=== PATIENT | male | born 1935 | race Caucasian/White ===

== ENCOUNTER 2018-12-13 08:45 | Day surgery (SDC) | payer OTHER, BC ==
[2018-12-06 15:55] VITALS: BMI 24.4
[2018-12-13] MEDS ORDERED: LIDOCAINE 1%/EPI 1:100000 (20 ML MULTI DOSE VIAL) ONE (09:52)
[2018-12-13] MEDS ORDERED: GUM MASTIC/STORAX/MSAL/ALCOHOL 1 DRP DROPSBTL MC ONE (09:53)
[2018-12-13] MEDS ORDERED: THROMBIN (RECOMBINANT) 5,000 UNIT VIAL TP ONE (10:04)
[2018-12-13] MEDS ORDERED: PROPOFOL 20 ML ONE ×4 (10:19→10:20)
[2018-12-13] MEDS ORDERED: DEXAMETHASONE SOD PHOSPHATE/PF 10 MG/ML SDV ONE (10:32)
[2018-12-13] MEDS ORDERED: MIDAZOLAM HCL 2 MG/2 ML SINGLE DOSE VIAL ONE (10:32)
[2018-12-13] MEDS ORDERED: BUPIVACAINE HCL/PF 0.5% (5 MG/ML) 30 ML VIAL IJ ONE (10:33)
[2018-12-13] MEDS ORDERED: ONDANSETRON 4 MG/2 ML VIAL ONE (11:23)
[2018-12-13] MEDS ORDERED: DEXAMETHASONE SOD PHOSPHATE 4 MG/1 ML VIAL ONE (11:23)
[2018-12-13] MEDS ORDERED: ceFAZolin SODIUM 1 GM VIAL ONE (11:23)
[2018-12-13] MEDS ORDERED: THROMBIN (BOVINE) 5,000 UNIT VIAL TP ONE ×2 (11:37→11:48)
[2018-12-13] MEDS ORDERED: ePHEDrine SULFATE 50 MG/1 ML AMPULE ONE (12:16)
--- NOTE | 2018-12-13 13:09 | OP ---
Operative Note - Note: Operative Date: 12/13/18 Pre-Operative Diagnosis: lumbar stenosis Operation: laminectomy of L2-3 with durotomy repair-durgen patch and duraseal Surgeon: Pratik Cervantes Wholesaler: Sharonda Espana Anesthesiologist/MUSIC EDUCATION ADJUNCT PROFESSOR: Oneil Etienne Anesthesia: Spinal Estimated Blood Loss (mls): 30 Fluid Volume Replaced (mls): 1,000 Operative Report Dictated: Yes
--- NOTE | 2018-12-13 13:10 | SURG ---
Surgery Aerospace Assembler Note Aerospace Assembler: Sharonda Espana PA-C Date of Service: 12/13/18 Diagnosis: lumbar stenosis Procedure: laminectomy of L2-3 with durotomy repair-durogen patch and duraseal I was present for the entirety of the operative procedure. For further detail, please refer to operative report. Visit type - Case Type Case Type: Scheduled - Emergency Emergency Visit: No - New patient This patient is new to me today: Yes Date on this admission: 12/13/18
[2018-12-13] MEDS ORDERED: ONDANSETRON 4 MG/2 ML VIAL IVPUSH PRN (14:13)
[2018-12-13] MEDS ORDERED: LACTATED RINGERS SOLUTION 1,000 ML IV SCH (14:15)
--- NOTE | 2018-12-13 14:23 | OP ---
DATE OF OPERATION: 12/13/2018 PREOPERATIVE DIAGNOSIS: Spinal stenosis, L2-3. POSTOPERATIVE DIAGNOSIS: Spinal stenosis, L2-3. PROCEDURE PERFORMED: Laminectomy, L2-3. SURGEON: Pratik Cervantes MD STEEL BUFFER: DEBBY Mackay ESTIMATED BLOOD LOSS: 50 mL. IV FLUIDS: Per Anesthesia. ANESTHESIA: Spinal/TLIP. COMPLICATIONS: There were none. DISPOSITION: Patient brought to the PACU in stable condition. INDICATION FOR SURGERY: The patient is an 83-year-old gentleman who has been suffering from pain from his back down his leg. X-rays and MRI were completed, which noted that he has spinal stenosis at L2-3. He had gone through an exhaustive course of treatment for this, which included medications, physical therapy as well as injections. Unfortunately, his pain continued to persist despite all this. At this point, risks, benefits, and alternatives were discussed and the patient consented to surgery. OPERATIVE NOTE: Patient was brought to the operating room by the anesthesia staff. After appropriate patient identification was performed, spinal anesthesia was given. A TLIP block was also given. The patient was able to position himself prone onto the OR table with all areas of bony prominences well padded. At this time, 2 needles were placed in his back to warren off the L2-3 level. X-ray was taken to confirm this was correct. The needle was removed and lidocaine 10 mL with epinephrine was injected in his back. At this time his back was prepped and draped in a sterile manner. At this point, timeout was completed. An incision was made from the top of L2 down to the bottom of L3. Dissection was carried down to the fascia. Fascia was opened at this time. An appropriate retractor was then placed in. A spinal needle was placed onto the L2 lamina to warren off the L2-3 level. X-rays taken to confirm this was correct. The needle was removed and the interspinous ligament at L2-3 was removed. Portions of the L2-L3 spinous processes were removed. Portions of L2-3 lamina were removed. Flavum was identified, it was removed. A complete decompression was performed, such that by the end of the procedure, the L3 nerve root appeared to be well decompressed. All bleeding was well controlled at this time. Steroid was placed over the nerve root, FloSeal was placed over that. The fascia was closed with a number 1 Vicryl suture. Subcutaneous tissue was closed with 2-0 Vicryl suture. Skin was closed with 3-0 Monocryl suture. Dermabond was applied, Steri-Strips were applied, sterile dressing applied. Patient was placed supine on OR bed, brought to the PACU in stable condition. Myke BURDICK/[id number]
[2018-12-13 14:36] VITALS: TEMP 97.8
[2018-12-13 16:24] VITALS: BP 155/79; PULSE 56
== END 2018-12-13 16:10 | disposition home or self-care (01) ==
LOC: FASU 08:45
PROVIDERS: ATTEND Orthopaedic Surgery Orthopaedic Surgery of the Spine
PROC: 01NB0ZZ Release Lumbar Nerve, Open Approach (ICD-10-PCS; principal; 2018-12-13 11:44)
DX: M48.061 Spinal stenosis, lumbar region without neurogenic claudication (principal)
CPT/HCPCS: 72100-TC-FY; 94760

== ENCOUNTER 2019-11-16 06:04 | Inpatient (IN) | payer OTHER, BC ==
[2019-11-16] MEDS ORDERED: LOCK ITEM NR ONE (06:34)
[2019-11-16 06:50] VITALS: BMI 24.0
[2019-11-16] MEDS ORDERED: MIDAZOLAM HCL 2 MG/2 ML SINGLE DOSE VIAL ONE ×4 (07:05→10:24)
[2019-11-16] MEDS ORDERED: ROPIVACAINE HCL 0.5% 30ML VIAL ONE (07:05)
[2019-11-16] MEDS ORDERED: SUCCINYLCHOLINE CHLORIDE 200 MG/10 ML SYRINGE ONE (07:20)
[2019-11-16] MEDS ORDERED: PROPOFOL 20 ML ONE (07:20)
[2019-11-16] MEDS ORDERED: BENZOIN/ALOE VERA/STORAX/TOLU 58 ML BOTTLE ONE (07:29)
--- NOTE | 2019-11-16 07:57 | PN ---
Progress Note (short form) - Note Progress Note: 84M s/p RIGHT total hip replacement POD #0. -Pain control: per anaesthesia team. -DVT PPx: -Chemical: ASA 81mg PO BID x 6 weeks. -Mechanical: MALCOLM's, SCD's. -Incentive spirometry q15 min. -PT/OT/Rehab, OOB. -WBAT RLE. -Post-op Ancef x 3 doses. -f/u post-op TOV: 8 hours max. -f/u AM labs. -Diet as tolerated. -Care per medical hospitalist team. -Discharge planning: f/u [facility] [place] Office 10-14 days; call for appointment . -Will follow. Camron Rapp MD (Orthopaedic Surgery).
--- NOTE | 2019-11-16 07:59 | OP ---
Operative Note - Note: Operative Date: 11/16/19 Pre-Operative Diagnosis: Right hip DJD Operation: Right COLLIN Implants: Burkett. Cup - Trident II-Tritanium, 58mm. Poly - 32mm, neutral. Stem - Accolade II, 127 deg NSA (high offset), #7. Head - 32mm diameter, std length Biolox/Delta Ceramic Post-Operative Diagnosis: Same as Pre-op Surgeon: Camron Rapp Family Life Counselor: Jim Rapp Anesthesiologist/CHEF TEACHER: Cullen Garland Anesthesia: Spinal Specimens Removed: Left femoral head Estimated Blood Loss (mls): 250 Fluid Volume Replaced (mls): 1,000 (Crystalloid) Operative Report Dictated: Yes
[2019-11-16] MEDS ORDERED: TRANEXAMIC ACID 1000 MG/10 ML VIAL IVPUSH ONE (08:00)
[2019-11-16] MEDS ORDERED: CEFAZOLIN 2 GM in DEXTROSE 5%-WATER - 50 ML IVPB ONE (08:00)
[2019-11-16] MEDS ORDERED: VANCOMYCIN 1 GM in D5W (PRE-DOCKED) 1,000 MG/250 ML IVPB ONE (08:01)
[2019-11-16] MEDS ORDERED: EPHEDRINE SULFATE/0.9% NACL/PF 50 MG/10 ML SYRINGE NR ONE (08:35)
[2019-11-16] MEDS ORDERED: ARTIFICIAL TEARS (POLYVINYL ALCOHOL) OPTH DROPS OU SCH (10:00)
[2019-11-16] MEDS ORDERED: CHOLECALCIFEROL (VIT D3) 1,000 UNIT (25 MCG) TABLET PO SCH (10:00)
[2019-11-16] MEDS ORDERED: PATIENT'S OWN MEDICATION (NON-FORMULARY) (B12/Levomefolate Calcium/B-6 [Foltx Tablet] 1 EA PO SCH (10:00)
[2019-11-16] MEDS ORDERED: HYDROCHLOROTHIAZIDE 12.5 MG CAPSULE (FP) PO SCH (10:00)
[2019-11-16] MEDS ORDERED: PATIENT'S OWN MEDICATION (NON-FORMULARY) (Ubidecarenone/Vit E Acet [Co Q-10 100 Mg Softgel PO SCH (10:00)
[2019-11-16] MEDS ORDERED: DEXAMETHASONE SOD PHOSPHATE 4 MG/1 ML VIAL ONE (10:12)
[2019-11-16] MEDS ORDERED: TRANEXAMIC ACID 1000 MG/10 ML VIAL ONE (10:12)
[2019-11-16] MEDS ORDERED: ceFAZolin SODIUM 1 GM VIAL ONE ×2 (10:12→10:27)
[2019-11-16] MEDS ORDERED: ONDANSETRON 4 MG/2 ML VIAL ONE (10:12)
[2019-11-16] MEDS ORDERED: MAGNESIUM HYDROX 2400MG/30ML ORAL SUSPENSION 30 ML CUP PO PRN (11:33)
[2019-11-16] MEDS ORDERED: ONDANSETRON 4 MG/2 ML VIAL IVPUSH PRN ×2 (11:33→11:40)
[2019-11-16] MEDS ORDERED: MAG HYDROX/AL HYDROX/SIMETH 30 ML UNIT-DOSE CUP PO PRN (11:33)
[2019-11-16] MEDS ORDERED: oxyCODONE HCL 5 MG TABLET PO PRN (11:40)
[2019-11-16] MEDS ORDERED: PROMETHAZINE HCL 25 MG/1 ML VIAL IVPUSH PRN (11:40)
[2019-11-16] MEDS ORDERED: LACTATED RINGERS SOLUTION 1,000 ML IV SCH (11:45)
--- NOTE | 2019-11-16 13:33 | HP ---
CHIEF COMPLAINT: Right hip pain PCP: Ortho: Dr. Camron Rapp HISTORY OF PRESENT ILLNESS: 84 year-old male with a PMH significant for hypertension, BPH, and right hip degenerative joint disease s/p right total hip arthoplasty today with Dr. Camron Rapp. 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[employer]; 2x; 2 children; 3 grandchildren Smoking: never Alcohol: no Drugs: no Family history: father 45 liver cancer; other CVA 68 Allergies soy Allergy (Severe, Verified 11/10/19 08:53) Difficulty Breathing,swelling tree and shrub pollen Allergy (Intermediate, Verified 11/10/19 08:53) Itching,runny nose No Known Drug Allergies Allergy (Verified 11/10/19 08:53) HOME MEDICATIONS: Current Medications Generic Name Dose Route Start Last Admin Trade Name Freq PRN Reason Stop Dose Admin Al Hydroxide/Mg Hydroxide 30 ml 11/16/19 11:33 Mylanta Oral Suspension - PO Q4H PRN DYSPEPSIA Ascorbic Acid 1,000 mg 11/16/19 10:00 11/16/19 16:21 Vitamin C - PO Not Given DAILY LOS Aspirin 81 mg 11/16/19 22:00 Asa - PO BID LOS Fentanyl 50 mcg 11/16/19 11:40 Sublimaze Injection - IVPUSH [id number] PRN PAIN-PACU ORDER X 4 DOSES ONLY Cefazolin Sodium/Dextrose 2 gm in 50 mls @ 100 mls/hr 11/16/19 17:00 11/16/19 17:22 Ancef 2 Gm Premixed Ivpb - IVPB 11/17/19 05:29 100 mls/hr Q6H LOS Administration Lactated Ringer's 1,000 mls @ 125 mls/hr 11/16/19 11:45 11/16/19 16:24 Lactated Ringers Solution IV 11/17/19 06:00 Not Given ASDIR LOS Magnesium Hydroxide 30 ml 11/16/19 11:33 Milk Of Magnesia - PO PRN PRN CONSTIPATION Multivitamins/Minerals 1 each 11/16/19 10:00 11/16/19 16:21 Theragran-M PO Not Given DAILY LOS Ondansetron HCl 4 mg 11/16/19 11:33 Zofran Injection IVPUSH Q6H PRN NAUSEA Ondansetron HCl 4 mg 11/16/19 11:40 Zofran Injection IVPUSH Q6H PRN NAUSEA AND/OR VOMITING Oxycodone HCl 10 mg 11/16/19 11:40 11/16/19 16:58 Roxicodone - PO 10 mg Q4H PRN Administration PAIN LEVEL 6-10 Oxycodone HCl 5 mg 11/16/19 11:40 Roxicodone - PO Q4H PRN PAIN LEVEL 1-5 Pantoprazole Sodium 40 mg 11/17/19 10:00 Protonix - PO DAILY [facility] Promethazine HCl 12.5 mg 11/16/19 11:40 Phenergan Injection - IVPUSH Q6H PRN NAUSEA-FOR RESCUE AFTER 15 MIN Senna/Docusate Sodium 2 tablet 11/16/19 22:00 Pericolace - PO BID [facility] REVIEW OF SYSTEMS CONSTITUTIONAL: Absent: fever, chills, diaphoresis, generalized weakness, malaise, loss of appetite, weight change HEENT: Absent: rhinorrhea, nasal congestion, throat pain, throat swelling, difficulty swallowing, mouth swelling, ear pain, eye pain, visual changes CARDIOVASCULAR: Absent: chest pain, syncope, palpitations, irregular heart rate, lightheadedness, peripheral edema RESPIRATORY: Absent: cough, shortness of breath, dyspnea with exertion, orthopnea, wheezing, stridor, hemoptysis GASTROINTESTINAL: Absent: abdominal pain, abdominal distension, nausea, vomiting, diarrhea, constipation, melena, hematochezia GENITOURINARY: Absent: dysuria, frequency, urgency, hesitancy, hematuria, flank pain, genital pain MUSCULOSKELETAL: Absent: myalgia, arthralgia, joint swelling, back pain, neck pain SKIN: Absent: rash, itching, pallor HEMATOLOGIC/IMMUNOLOGIC: Absent: easy bleeding, easy bruising, lymphadenopathy, frequent infections ENDOCRINE: Absent: unexplained weight gain, unexplained weight loss, heat intolerance, cold intolerance NEUROLOGIC: Absent: headache, focal weakness or paresthesias, dizziness, unsteady gait, seizure, mental status changes, bladder or bowel incontinence PSYCHIATRIC: Absent: anxiety, depression, suicidal or homicidal ideation, hallucinations. PHYSICAL EXAMINATION Vital Signs - 24 hr 11/16/19 11/16/1920 06:45 11:23 11:25 Temperature 98 F 97 F L Pulse Rate 63 61 60 Respiratory 15 18 18 Rate Blood Pressure 144/78 112/61 106/51 L O2 Sat by Pulse 95 95 Oximetry (%) 11/16/19 11/16/19 11/16/19 11:30 11:35 11:50 Temperature 97 F L Pulse Rate 55 L 57 L 57 L Respiratory 18 18 18 Rate Blood Pressure 105/54 L 102/52 L 102/52 L O2 Sat by Pulse 95 95 95 Oximetry (%) 11/16/19 11/16/19 11/16/19 12:10 12:25 12:40 Temperature Pulse Rate 57 L 51 L 54 L Respiratory 18 18 18 Rate Blood Pressure 110/56 L 121/55 L 116/54 L O2 Sat by Pulse 95 95 95 Oximetry (%) 11/16/19 12:50 Temperature Pulse Rate 54 L Respiratory 18 Rate Blood Pressure 116/54 L O2 Sat by Pulse 95 Oximetry (%) GENERAL: Awake, alert, and fully oriented, in no acute distress. HEAD: Normal with no signs of trauma. EYES: Pupils equal, round and reactive to light, extraocular movements intact, sclera anicteric, conjunctiva clear. No lid lag. LUNGS: Breath sounds equal, clear to auscultation bilaterally. No wheezes, and no crackles. No accessory muscle use. HEART: Regular rate and rhythm, normal S1 and S2 ABDOMEN: Soft, nontender, not distended UPPER EXTREMITIES: 2+ pulses, warm, well-perfused. No cyanosis. No clubbing. No peripheral edema. RLE: surgical dressing c/d/i, ice pack, no surrounding erythema, swelling, or fluctuance; 2+DP pulses, warm, well-perfused; +flex/extend toes, sensory intact; SLR to 45 degrees with minimal discomfort NEUROLOGICAL: Cranial nerves II-XII intact. Normal speech. Pre op Hgb 14.6 BUN 37 Cr 1.0 Intra op EBL 250ccs LR 1,000ccs Vanc x 1, Ancef x 1 ASSESSMENT/PLAN: 84 year-old male with a PMH significant for HTN, BPH, essential tremors, DJD s/p right COLLIN. Right total hip arthroplasty --POD #0 --perioperative antibiotics per surgery --pain management per surgery --ASA 81mg BID --protonix --bowel regimen --incentive spirometry COVID negative --11/12/19 swab Hypertension --borderline low BP, hold HCTZ Essential tremors --mildy bradycardic, hold propranolol FEN Fluids: LR@125mL/hr Electrolytes: replete as indicated Nutrition: regular diet DVT prophylaxis: OOB, ambulation, SCDs, TEDs, ASA 81mg BID Physical therapy Dispo: continues to require inpatient care. Full code. Visit type - Emergency Visit Emergency Visit: No - New Patient This patient is new to me today: Yes Date on this admission: 11/16/19 - Critical Care Critical Care patient: No
[2019-11-16] MEDS: ASCORBIC ACID 500 MG TABLET (FP) PO SCH (16:21)
[2019-11-16] MEDS: MULTIVITAMINS THER W-MINERALS COMBO TABLET (FP) PO SCH (16:21)
[2019-11-16] MEDS: oxyCODONE HCL 5 MG TABLET PO PRN ×2 (16:58→20:00)
[2019-11-16] MEDS: CEFAZOLIN 2 GM/D5W 2 GM/50 ML ML IVPB SCH ×2 (17:22→23:00)
--- NOTE | 2019-11-16 18:27 | OP ---
Date of Operation: 11/16/2019 Surgeon: Camron Rapp M.D. Nurse Healthcare Manager: Jimmy Rapp M.D. Pre-Operative Diagnosis: Primary osteoarthritis right hip. Post-Operative Diagnosis: Primary osteoarthritis right hip. Surgical Procedure: Right total hip replacement via Direct Suprior approach. ( [id number]) Anaesthesia: Spinal. Position: Left lateral decubitus. Incision: Direct superior. Estimated Blood Loss: 250cc. Intravenous Fluid: 1L crystalloid. Specimens: Right femoral head. Drains: None. Complications: None. Urine output: None. Bacteriology: None. Transfusions: None. Closure: #1 Vicryl, 3-0 Biosyn. Indications: The patient has severe bilateral primary osteoarthritis of the hips. As an outpatient, he was originally indicated for left total hip replacement first, as his left hip was more symptomatic. Today, he has been indicated for a right total hip replacement in order to facilitate improved motion and mobilization, and to prevent the complications associated with a sedentary lifestyle. Today, he has requested that his right hip be replaced because it has become the more symptomatic of the two. He will pursue a left total hip replacement in a few months, once he has recovered. This was discussed with, and understood by, his family. The patient was identified in the holding area by his armband. A long discussion was held with the patient regarding the risks, benefits and alternatives of the above named procedure. Risks include but are not limited to: pain, bleeding, infection, damage to surrounding structures (including nerves, blood vessels, skin, ligaments, tendons and bone), wound complications, failure of hardware/implants/reduction, need for further surgery, blood clots, myocardial infarction, pulmonary embolism, cerebrovascular insult, anaesthesia complications, compartment syndrome, limb loss, limp, loss of function, and . Benefits as mentioned above. Alternatives include no surgery. All questions were answered. The patient understood and agreed to the procedure. Informed consent was obtained, witnessed and verified. The patients correct operative limb - that is the right lower extremity - was marked, and the patient was taken to the operating room after being seen by the anesthesia and nursing staff. Procedure: The patient was brought into the operating room, placed on the OR table and secured with a safety strap. Consent and the operative site were again verified with the patient and nursing and anaesthesia staff. Anaesthesia, IV antibiotics, and TXA were then administered without complication. A time out was done, led by me the attending surgeon. A pre-operative orthpaedic exam revealed that his right lower extremity was 0.5cm longer than his left lower extremity. The patient was gently turned into the left lateral decubitus position. A Stulberg hip positioner with well-padded bolsters was used to secure the patient in the lateral decubitus position. The down arm was placed on a well-padded arm board. The up arm was brought across the patients body and placed on 2 pillows. Foam egg crates were placed under the down knee and ankle, and bony prominences were well padded. The operative limb was prepped in standard sterile fashion using betadine prep & scrub, wiped off with alcohol, DuraPrep applied, and then free draped. Time out was again done and the case began. Operation: A standard Direct Superior surgical approach was utilized to access the hip joint. With a #10 blade, a skin incision was taken from the posterior-superior corner of the greater trochanter in a posterior-superior direction. This was approximately 10cm in length. Electrocautery was utilized to carry the deep dissection down to the level of the gluteus amelie fascia. Hemostasis was assured using electrocautery (bipolar and unipolar). The gluteus amelie fascia was incised, and the fibers of gluteus amelie were in line with the trajectory of the incision. This confirmed the accuracy of our planned incision based on palpated landmarks and surface anatomy. A Murry elevator was used to split the distal fibers of gluteus amelie, in line with the fibers, just proximal to their insertion into the iliotibial band. Great care was taken not to incise the iliotibial band. Gluteus amelie fibers were split proximally using the Murry elevator until reaching the apex of the wound. Again, hemostasis was assured. The chase-capsular fat pad was exposed utilizing curved handle bar retractors. The chase-capsular fat pad was excised off the inferior border of the gluteus medius muscle belly, exposing the insertion of the hip short external rotator muscle group. The piriformis tendon was identified and freed from adhesions to the capsule using a 90-degree clamp. This tendon was then released from its insertion using electrocautery. The tendon was tagged with a #1 Ethibond suture and tied to the inferior aspect of the proximal wound apex. The tendon, thus, served as a sling to retract and protect the sciatic nerve. With the piriformis tendon reflected away from its insertion, the hip joint capsule was visualized. Electrocautery was used to perform a capsulotomy and synovial joint fluid was aspirated. Next, the superior leaflet of the capsule was elevated using a Murry elevator to create separation from the underlying labrum and also to create a plane for later placement of a supra-acetabular retractor. The labrum was excised using electrocautery. The hip was then gently dislocated. A standard femoral neck cut was made using an oscillating saw. A 3/4" osteotome was delivered into the femoral head using mallet strikes. The femoral head was then removed. Anterior, inferior, and supra-acetabular retractors were placed to expose the acetabulum. The pulvinar was excised using electrocautery. Odd sized reamers were used to prepare the acetabular bone bed. Healthy blushes of bleeding were observed from the reamed cancellous bone bed. Next, a size 58mm [place] Trident II-Tritanium cup was impacted into position, achieving excellent press-fit. A size 32mm neutral polyethylene liner was then impacted into the cup. Excellent placement of the polyethylene liner, and excellent press fit of the cup were confirmed. Next, attention was turned to femoral preparation. The anterior and supra-acetabular retractors were removed. The cut femoral neck was then exposed using the inferior acetabular retractor around the calcar, and a straight 90-degree retractor to retract gluteus medius. The box-cutter osteotome was used with a mallet to removed bone from the lateral femoral neck. An opening reamer was delivered by hand to find the femoral canal. A lateralizing reamer was used with power to lateralize the proximal entry into the canal, so as to avoid placing the stem into varus. The femoral bone bed was then prepared using broaches with gentle mallet strikes. The tibia was used as a goniometer with which to dial in approximately 5 degrees of stem anteversion. Trial components were assembled and the hip was reduced. The hip was taken through a full range of motion and proved stable throughout this range of motion, including at the extremes of positions of compromised. All trial femoral components were removed. Another 1g of IV Ancef was administered so that the bone bed would be rich with antibiotic at the time of seating of the femoral implant. A Esha Accolade II (127-degree NSA, high offset) #7 stem was then implanted using gentle mallet strikes, diligently matching the prepared degree of stem anteversion. With the stem fully seated, a 32mm diameter, standard length ceramic/Biolox femoral head was then selected and implanted. The hip was once again reduced, and taken through a full range of motion. Stability was once again assured. Leg length was satisfactory. The wounds were copiously irrigated, as they had been regularly throughout the case so as to keep the retracted tissues wet, and in order to flush out wound debris. The capsule was primarily repaired using #1 Vicryl sutures in simple interrupted fashion. The tagged piriformis tendon was released and tied to the posterior-lateral corner of the greater trochanter. The remaining wounds were again irrigated. Hemostasis was assured and the wound was closed primarily using #1 Vicryl sutures. A 3-0 Biosyn suture was used to perform a subcuticular wound closure. A sterile, compressive dressing was applied. The sponge and needle counts were correct at the end of the case and the attending was present and scrubbed throughout the case. The patient was then transferred into a supine position and onto the hospital bed. A standard AP-pelvis x-ray was taken, demonstrating good overall alignment with a well reduced, congruent hip. There was no evidence of subsidence, loosening, or chase-prosthetic fracture. The patient was then was then transferred to the recovery room without incident/complications and in stable condition, having tolerated the procedure well. MD LARRY Murphy/[id number] MTDD
[2019-11-16] MEDS: ASPIRIN 81 MG CHEWABLE TABLETS PO SCH (21:43)
[2019-11-16] MEDS: SENNOSIDES/DOCUSATE COMBO (SENNA PLUS) TABLET (UD) PO SCH (21:44)
[2019-11-17] MEDS: CEFAZOLIN 2 GM/D5W 2 GM/50 ML ML IVPB SCH (05:03)
[2019-11-17] MEDS: oxyCODONE HCL 5 MG TABLET PO PRN ×2 (05:03→21:12)
--- NOTE | 2019-11-17 07:44 | PN ---
Progress Note (short form) - Note Progress Note: ORTHO POD __1__, s/p __RT THR Pt seen and examined. Doing well post op. Pain well controlled. Has been oob ambulating with PT. Passing flatus. Tolerating diet. Voiding without issue. Denies cp/sob, n/v/d. GEN: A&0x3, NAD CV: Lungs: CTA b/l ABD: soft, non-distended, non-tender. Right hip: Surgical dressing c/d/i. Compartments soft, no calf tenderness or swelling noted b/l. TEDs/SCDS in place b/l. 09/12 dorsi/plantar flexion b/l, 09/12 EHl/FHL b/l, SILT b/l les. Assessment/Plan: __84__y/o F/M with history of _RT HIP___ OA now POD __1___ s/p R __THR___. Pt doing well post-operatively. Afebrile, VSS. Pain controlled. -Pain control as ordered -DVT PPx: Chemical: ASA 81 mg po BID x 6 weeks, Mechanical: MALCOLM's, SCD's -Incentive Spirometry -PT/OT/Rehab, OOB -WBAT RLE -f/u am labs -Home meds ordered as appropriate -Care per medical hospitalist team.
[2019-11-17 08:19] LABS: CALCIUM 8.2 mg/dl (8.5-10); CREATININE 1.2 mg/dl (0.55-1.3); POTASSIUM 3.6 mmol/L (3.5-5.1)
[2019-11-17 08:49] LABS: HEMATOCRIT 38.4 % (35.4-49); HEMOGLOBIN 13.6 GM/dl (11.7-16.9); MCH 31.3 pg (25.7-33.7); MCHC 35.4 g/dl (32.0-35.9); MEAN CELL VOLUME 88.6 fl (80-96); MEAN PLT VOLUME 7.3 fl (7.5-11.1); PLATELET COUNT 196 K/MM3 (134-434); RBC 4.33 M/mm3 (4.00-5.60); RDW 12.2 % (11.9-15.9); WHITE BLOOD COUNT 10.5 K/mm3 (4.0-10.8)
[2019-11-17 08:59] LABS: ALBUMIN 3.3 g/dl (3.4-5.0); BILIRUBIN,TOTAL 0.8 mg/dl (0.2-1); TOT PROT 6.2 g/dl (6.4-8.2)
--- NOTE | 2019-11-17 09:25 | PN ---
Progress Note (short form) - Note Progress Note: ANESTHESIA POSTOP 84 YO MALE POD #1 S/P RIGHT TOTAL HIP ARTHROPLASTY, SPINAL WITHOUT NERVE BLOCK Patient sitting in chair. Tolerating PO. VSS, Afebrile Continue Current care, encouraged IS and active participation in PT. No anesthetic complications
[2019-11-17] MEDS: ASPIRIN 81 MG CHEWABLE TABLETS PO SCH ×2 (10:16→21:12)
[2019-11-17] MEDS: MULTIVITAMINS THER W-MINERALS COMBO TABLET (FP) PO SCH (10:16)
[2019-11-17] MEDS: PANTOPRAZOLE 40 MG TABLET PO SCH (10:16)
[2019-11-17] MEDS: SENNOSIDES/DOCUSATE COMBO (SENNA PLUS) TABLET (UD) PO SCH ×2 (10:16→21:12)
[2019-11-17] MEDS: ASCORBIC ACID 500 MG TABLET (FP) PO SCH (10:17)
--- NOTE | 2019-11-17 12:11 | PN ---
Physical Exam: SUBJECTIVE: Patient seen and examined oob to chair. Asking for propranol which he takes PRN for essential tremors. OBJECTIVE: Vital Signs Period Temp Pulse Resp BP Sys/Shirley Pulse Ox Last 24 Hr 97.6 F-98.8 F 51-73 16-20 116-153/52-86 95-100 GENERAL: Awake, alert, and fully oriented, in no acute distress. LUNGS: Breath sounds equal, clear to auscultation bilaterally. No wheezes, and no crackles. No accessory muscle use. HEART: Regular rate and rhythm, normal S1 and S2 ABDOMEN: Soft, nontender, not distended UPPER EXTREMITIES: 2+ pulses, warm, well-perfused. No cyanosis. No clubbing. No peripheral edema. RLE: surgical dressing c/d/i, ice pack, no surrounding erythema, swelling, or fluctuance; 2+DP pulses, warm, well-perfused; +flex/extend toes, sensory intact; SLR to 45 degrees with minimal discomfort NEUROLOGICAL: upper extremity tremors; normal speech Laboratory Results - last 24 hr 11/17/19 11/17/19 07:06 07:06 WBC 10.5 RBC 4.33 Hgb 13.6 Hct 38.4 MCV 88.6 MCH 31.3 MCHC 35.4 RDW 12.2 Plt Count 196 MPV 7.3 L Sodium 136 Potassium 3.6 Chloride 97 L Carbon Dioxide 28 Anion Gap 11 BUN 28.0 H Creatinine 1.2 Est GFR (CKD-EPI)AfAm 63.97 Est GFR (CKD-EPI)NonAf 55.20 Random Glucose 148 H Calcium 8.2 L Total Bilirubin 0.8 AST 34 ALT 13 Alkaline Phosphatase 63 Total Protein 6.2 L Albumin 3.3 L Active Medications Generic Name Dose Route Start Last Admin Trade Name Freq PRN Reason Stop Dose Admin Al Hydroxide/Mg Hydroxide 30 ml 11/16/19 11:33 Mylanta Oral Suspension - PO Q4H PRN DYSPEPSIA Ascorbic Acid 1,000 mg 11/16/19 10:00 11/17/19 10:17 Vitamin C - PO 1,000 mg DAILY LOS Administration Aspirin 81 mg 11/16/19 22:00 11/17/19 10:16 Asa - PO 81 mg BID LOS Administration Magnesium Hydroxide 30 ml 11/16/19 11:33 Milk Of Magnesia - PO PRN PRN CONSTIPATION Multivitamins/Minerals 1 each 11/16/19 10:00 11/17/19 10:16 Theragran-M PO 1 each DAILY LOS Administration Ondansetron HCl 4 mg 11/16/19 11:33 Zofran Injection IVPUSH Q6H PRN NAUSEA Oxycodone HCl 10 mg 11/16/19 11:40 11/17/19 05:03 Roxicodone - PO 10 mg Q4H PRN Administration PAIN LEVEL 6-10 Oxycodone HCl 5 mg 11/16/19 11:40 Roxicodone - PO Q4H PRN PAIN LEVEL 1-5 Pantoprazole Sodium 40 mg 11/17/19 10:00 11/17/19 10:16 Protonix - PO 40 mg DAILY LOS Administration Senna/Docusate Sodium 2 tablet 11/16/19 22:00 11/17/19 10:16 Pericolace - PO 2 tablet BID LOS Administration Pre op Hgb 14.6 BUN 37 Cr 1.0 Intra op EBL 250ccs LR 1,000ccs Vanc x 1, Ancef x 1 ASSESSMENT/PLAN: 84 year-old male with a PMH significant for HTN, BPH, essential tremors, DJD s/p right COLLIN. Right total hip arthroplasty --POD #1 --perioperative antibiotics complete --pain well-controlled with PO meds --ASA 81mg BID --protonix --bowel regimen --incentive spirometry --voiding freely COVID negative --11/12/19 swab Hypertension --borderline low BP, diastolic <60; hold HCTZ and propranolol Essential tremors --hold propranolol FEN Fluids: PO intake adequate Electrolytes: replete as indicated Nutrition: regular diet DVT prophylaxis: OOB, ambulation, SCDs, TEDs, ASA 81mg BID Physical therapy Dispo: continues to require inpatient care. Full code. Plan to discharge to [facility] tomorrow. Visit type - Emergency Visit Emergency Visit: No - New Patient This patient is new to me today: No - Critical Care Critical Care patient: No
[2019-11-18 08:03] LABS: HEMOGLOBIN 12.1 GM/dl (11.7-16.9); PLATELET COUNT 178 K/MM3 (134-434); RDW 12.4 % (11.9-15.9)
[2019-11-18 08:13] LABS: HEMATOCRIT 34.3 % (35.4-49); MCHC 35.4 g/dl (32.0-35.9); MEAN CELL VOLUME 90.3 fl (80-96); MEAN PLT VOLUME 7.6 fl (7.5-11.1); RBC 3.79 M/mm3 (4.00-5.60); WHITE BLOOD COUNT 10.4 K/mm3 (4.0-10.8)
--- NOTE | 2019-11-18 09:05 | PN ---
Progress Note (short form) - Note Progress Note: POD 2, s/p R THR Pt seen and examined. Reports he is doing well, No issues overnight. Has been oob with PT. Tolerating Po. Denies n/v/d. Voiding without issue. Vital Signs Temp 98.3 F 11/18/19 05:00 Pulse 66 11/18/19 05:00 Resp 18 11/18/19 05:00 BP 120/47 L 11/18/19 05:00 Pulse Ox 96 11/18/19 08:28 Intake & Output 11/17/19 11/17/19 11/18/19 11:59 23:59 11:59 Intake Total 400 300 Output Total 300 Balance 100 300 Intake: Oral 400 300 Output: Urine 300 Void 300 Other: Voiding Method Urinal Urinal CBC, BMP 11/18/19 07:09 11/17/19 07:06 Gen: awake, alert, nad Resp: unlabored on RA Ext: R hip dressing in place, c/d/i. Minimal surrounding edema, compartments soft. 5/5 dorsi/plantarflexion. SILT b/l les. Feet cold equal b/l, biphasic norma/pt b/l A/P: 84 y/o M w/ PMHx HTN, BPH, and right hip degenerative joint disease POD 2, s/p right total hip arthoplasty afebrile, vss labs reviewed, exam stable -Plan for d/c to [facility] today -d/c instructions reviewed with pt at length d/w attending Dr Rapp
[2019-11-18] MEDS: SENNOSIDES/DOCUSATE COMBO (SENNA PLUS) TABLET (UD) PO SCH (09:52)
[2019-11-18] MEDS: PANTOPRAZOLE 40 MG TABLET PO SCH (09:52)
[2019-11-18] MEDS: ASCORBIC ACID 500 MG TABLET (FP) PO SCH (09:53)
[2019-11-18] MEDS: MULTIVITAMINS THER W-MINERALS COMBO TABLET (FP) PO SCH (09:53)
[2019-11-18] MEDS: ASPIRIN 81 MG CHEWABLE TABLETS PO SCH (09:54)
--- NOTE | 2019-11-18 10:12 | DS ---
Physical Exam: SUBJECTIVE: Patient seen and examined OBJECTIVE: Vital Signs Period Temp Pulse Resp BP Sys/Shirley Pulse Ox Last 24 Hr 98.1 F-99.7 F 63-76 16-20 120-147/46-63 95-97 PHYSICAL EXAM GENERAL: Awake, alert, and fully oriented, in no acute distress. LUNGS: Breath sounds equal, clear to auscultation bilaterally. No wheezes, and no crackles. No accessory muscle use. HEART: Regular rate and rhythm, normal S1 and S2 ABDOMEN: Soft, nontender, not distended UPPER EXTREMITIES: 2+ pulses, warm, well-perfused. No cyanosis. No clubbing. No peripheral edema. RLE: surgical dressing c/d/i, 2+DP pulses, warm, well-perfused; +flex/extend toes, sensory intact NEUROLOGICAL: upper extremity tremors; normal speech LABS Laboratory Results - last 24 hr 11/18/19 07:09 WBC 10.4 RBC 3.79 L Hgb 12.1 Hct 34.3 L MCV 90.3 MCH 32.0 MCHC 35.4 RDW 12.4 Plt Count 178 MPV 7.6 HOSPITAL COURSE: Date of Admission:11/16/19 Date of Discharge: 11/18/19 84 year-old male with a PMH significant for HTN, BPH, essential tremors, DJD s/p right COLLIN. Right total hip arthroplasty 11/16/19 --perioperative antibiotics complete --pain well-controlled with PO meds --ASA 81mg BID x 6 weeks COVID negative --11/12/19 swab Hypertension --BP was borderline low post-op, HCTZ and propranolol were held, resumed on discharge Essential tremors --propranolol resumed on discharge Minutes to complete discharge: 35 Discharge Summary Problems reviewed: Yes Reason For Visit: LEFT HIP OSTEOARTHRITIS Condition: Improved - Instructions Diet, Activity, Other Instructions: Dr. Rapp Discharge Instructions for Hip Replacement Post Operative Instructions Physical activity Physical Therapist will come to your home for the first 5 days. You will be set up with outpatient PT at your first post-operative visit. Use assistive devices for ambulation at all times. Weight bearing as tolerated on your surgical side. Wound care Leave your surgical dressing in place. Do not change the dressing until seen by your surgeon in the office. No baths or showers. Do not submerge your incision. Do not apply any ointments or lotions to your incision. Please call the office if your dressing is soiled/dirty or is falling off. Apply Graduated Compression Stockings (TEDS) to both lower extremities-remove daily for hygiene ONLY. Diet There are no dietary restrictions. Eat healthy, high-fiber foods. Drink 6 to 8 glasses of liquid each day. This will assist in keeping your bowels are regular. Pain management Any pain prescription medication ordered should be taken as prescribed for moderate to severe pain. Do not take additional Tylenol while taking Percocet. Posterior Hip Precautions: Do not cross the leg you had surgery on over your other leg. (Do not cross your legs.)Use an elevated toilet seat. Do not sit on low chairs or beds. Use purple pillow (abductor) when lying in bed. Take Aspirin 81 mg two times a day for a total of 6 weeks to prevent blood clots. Call Dr. Rapp for any of the following: Severe pain not relieved by medication Fever of 101 or higher Excessive bleeding or drainage on dressing Inability to urinate If you experience chest pain or shortness of breath, please seek emergency care immediately. Please call the office at to confirm your post-op appointment for the week following surgery. Referrals: Camron Rapp MD [Staff Physician] - Disposition: ASSISTED FACILITY - Home Medications Comprehensive Discharge Medication List: Ambulatory Orders Hydrochlorothiazide 12.5 mg PO DAILY 12/06/18 Propranolol HCl 40 mg PO BID PRN 12/06/18 Polyvinyl Alcohol [Artificial Tears] 15 ml OP BID 11/10/19 Ascorbic Acid/Ascorbate Sodium [Vit C-Sparkle Hips 500 mg Chew Tb] 1,000 mg PO DAILY 11/16/19 B12/Levomefolate Calcium/B-6 [Foltx Tablet] 1 each PO DAILY 11/16/19 Cholecalciferol (Vitamin D3) [Vitamin D3] 5,000 unit PO DAILY 11/16/19 Ginkgo Biloba 120 mg PO DAILY 11/16/19 Multivit-Min/Iron/Folic Acid/K [Multi-Day Plus Minerals Tablet] 1 each PO DAILY 11/16/19 [place]-3 Fatty Acids/Fish Oil [Fish Oil 1,000 mg Capsule] 1 each PO DAILY 11/16/19 Turmeric/Turmeric Root Extract [Turmeric 500 mg Capsule] 500 mg PO DAILY 11/16/19 Ubidecarenone/Vit E Acet [Co Q-10 100 mg Softgel] 1 each PO DAILY 11/16/19 Aspirin [ASA -] 81 mg PO BID tab.chew 11/18/19 oxyCODONE HCL [Roxicodone -] 5 mg PO Q4H PRN tablet 11/18/19 Prescription Drug Monitoring Program (I-STOP) results: I-STOP not reviewed This patient is new to me today: No Emergency Visit: No Critical Care patient: No - Discharge Referral Referred to [facility] No
[2019-11-18 10:53] VITALS: TEMP 98.6
[2019-11-18 11:23] VITALS: BP 123/45; PULSE 62
--- NOTE | 2019-11-18 16:41 | PATH ---
Surgical Pathology Report Patient Name: YURIDIA ORTEGA Med. Rec. #: [id number] /Age/Gender: 1935 (Age: 84) / M Account: [id number] Location: [facility] MED[facility] Taken: 11/16/2019 Received: 11/16/2019 Reported: 11/18/2019 Physicians: Camron Rapp M.D. Specimen(s) Received RIGHT FEMORAL HEAD Clinical History Right hip osteoarthritis Final Diagnosis FEMORAL HEAD, RIGHT, TOTAL HIP REPLACEMENT: DEGENERATIVE JOINT DISEASE. Electronically Signed Ricarda Bangura M.D. Gross Description Received in formalin, labeled "right femoral head," is a 5.0 x 5.0 x 4.6 cm. femoral head with a 1.8 cm in length portion of femoral neck attached. The margin of resection is smooth. There is a 1.0 cm in greatest dimension area of eburnation present. The remaining articular surface is marx-yellow and diffusely granular. The underlying trabecular bone is yellow and hard. A public service representative section is submitted in one cassette, following decalcification. /11/17/2019 [facility]11/17/2019
== END 2019-11-18 12:00 | DRG 470 ==
LOC: FM/S 06:04
PROVIDERS: ADMIT Orthopaedic Surgery Orthopaedic Surgery of the Spine; ATTEND Orthopaedic Surgery Orthopaedic Surgery of the Spine
PROC: 0SR90JA Replacement of Right Hip Joint with Synthetic Substitute, Uncemented, Open Approach (ICD-10-PCS; principal; 2019-11-16 09:12)
DX: M16.11 Unilateral primary osteoarthritis, right hip (principal); I10 Essential (primary) hypertension; R00.1 Bradycardia, unspecified; G25.0 Essential tremor; N40.0 Benign prostatic hyperplasia without lower urinary tract symptoms
CPT/HCPCS: 36415; 72170-TC-FY; 73502-TC-RT-FY; 80048; 80053; 85027; 88305-TC; 88311-TC; 94760; 97010-GP; 97116-GP; 97163-GP